=== PATIENT | female | born 1990 ===

== ENCOUNTER → 2020-01-06 | Day surgery (SDC) | payer OTHER | END | disposition home or self-care (01) | LOC: JASU-ENDO 05:26 | PROVIDERS: ATTEND Internal Medicine Gastroenterology | PROC: 0DJ08ZZ Inspection of Upper Intestinal Tract, Via Natural or Artificial Opening Endoscopic (ICD-10-PCS; principal; 2020-01-06) | DX: R10.13 Epigastric pain (principal); Z53.8 Procedure and treatment not carried out for other reasons ==